=== PATIENT | female | born 1945 | race Caucasian/White ===

== ENCOUNTER 2016-11-06 06:30 | Day surgery (SDC) | payer MEDICARE, BC ==
[~2016-11-06] VITALS: Ht 170.2 cm; Wt 90.7 kg
--- NOTE | ~2016-11-06 | OP ---
PATIENT NAME: OPAL CHEN MEDICAL RECORD: [id number] :[birth year] LOCATION:[facility] ADMISSION DATE: SURGEON: TAMRA GREENE MD DATE OF OPERATION: 11/06/2016 REFERRED BY: Dr. Nikolas Espana. 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 SURGEON: Tamra Greene MD ANESTHESIA: General with LMA per DAMPER WORKER. OPERATION PERFORMED: Left upper extremity fistulogram with recanalization of the occluded subclavian vein with balloon angioplasty with a finding of a severe recoiling stenosis and subsequent stenting with a Langlois VBX 10 mm x 2.9 cm PTFE covered stent. PREOPERATIVE NOTE: Ms. Chen is a 70-year-old white female from [place], who has dialysis 3 days a week, Saturday, Saturday and Saturday in [place]. She dialyzes with a left brachiocephalic arteriovenous fistula and has had recurrent problems with first cephalic arch stenosis and more recently a recurrent stenosis in the left subclavian vein. She has had the cephalic arch stented and that has not been a problem now for some time. Dr. Espana thought that a balloon expandable stent possibly inserted from the femoral approach would be the best way of accurately stenting open the subclavian vein while maintaining patency and not interfering with the cephalic arch or its confluence with the subclavian. PROCEDURE: The patient was so uncomfortable that the operation could not be conducted under IV sedation and local. So, she was given a general anesthetic with an LMA and administered 2 by DAMPER WORKER. The left arm was prepped and draped as were both femoral areas in case of the need to go through a femoral approach. I accessed the fistula near the arterial anastomosis with micropuncture technique and placed first a 6-Bulgarian sheath and later an 8-Bulgarian sheath, which was required for the VBX stent. Contrast injection revealed no evidence of any stenoses or complications of the fistula. The cephalic arch was wide open looking very nice through the stent, especially the confluence of the cephalic and the axillary vein to form the subclavian vein, looked great. There was no impingement of all of the stent on the lumen, it seemed to be fairly flush there at the orifice of the cephalic arch. There was, however, a complete occlusion of the subclavian vein distal to the brachiocephalic. I fortunately was able to cross this very easily with a 0.035 angled Glidewire and subsequently passed an angled glide catheter and performed a superior vena cavogram and noted, then with pullback angiography, that there was no evidence of stenosis or occlusion of the brachiocephalic vein itself. The superior vena cava was normal. I then performed a wire exchange and inserted a long Stallworth wire parking it in the inferior vena cava and over that wire, I performed a balloon angioplasty with an 8 mm angioplasty balloon, which reached full effacement with standard pressure OPERATIVE REPORT [id number] OPAL CHEN inflation, but subsequent repeated digital angiography revealed a near total recoil with a 90% stenosis in that area. This area of stenosis had recurred several times as Dr. Espana had pointed out at the last treatment at [facility], so I went ahead and stented the area, but I was successful in stenting it very accurately from the arm approached through the fistula using a new Langlois product, the VBX balloon inflated stent. I chose a 10 mm diameter stent, 2.9 cm in length. This was positioned in the proximal subclavian vein, so as to preserve the orifice of the internal jugular vein which appeared to be small and probably stenotic from prior catheter access, but still patent. The stent was deployed with inflation of the balloon to 12 atmospheres. After which, the balloon was deflated and removed. Repeated contrast injection revealed a very satisfactory result, which did not require any further expansion of the stent. The stent would accommodate additional expansion up to 12 mm in diameter with foreshortening to 2.5 cm length; however, I really did not think that was necessary as it was almost a perfect size. The hardware was then removed and the introducer sheath removed and the puncture site closed with a [id number] 4-0 Prolene suture and that site subsequently dressed with an Avitene Ultrafoam sponge, Tegaderm and Cavilon skin prep. The patient was awakened and taken to the recovery room in stable condition. Blood loss during the procedure was 0 and no specimen was submitted. Sponges, instruments and needles, etc. were accounted for, certainly no drain was used. She will be discharged later from the outpatient department when meets criteria. She is to continue all of her same diet, medications and activities and continue her usual dialysis schedule. I have recommended that she be scheduled for a followup angiogram at [facility] in approximately 3 months. TRANSINT:[id number] Voice Confirmation ID: [id number] DOCUMENT ID: [id number] TAMRA GREENE MD CC: [id number] DICTATION DATE: 11/06/16 1432 PAINTER AIRBRUSH: 11/06/161918 [facility] 11/06/16 [facility] [address] [place] [address]
[2016-11-06] MEDS ORDERED: BAYER CHEWABLE81 MG PO (08:57)
[2016-11-06] MEDS ORDERED: NOVOLIN N100 U/ML SQ (08:58)
[2016-11-06] MEDS ORDERED: HUMALOG 30100 UNITS/ SC (08:59)
[2016-11-06] MEDS ORDERED: LASIX80 MG PO (09:00)
[2016-11-06] MEDS ORDERED: GABAPENTIN100 MG PO (09:01)
[2016-11-06] MEDS ORDERED: MIDODRINE HCL5 MG PO (09:01)
[2016-11-06] MEDS ORDERED: RENVELA800 MG PO (09:02)
[2016-11-06] MEDS ORDERED: PEPCID20 MG PO (09:02)
[2016-11-06] MEDS ORDERED: ZYRTEC10 MG PO (09:03)
[2016-11-06] MEDS ORDERED: REGLAN10 MG PO (09:04)
[2016-11-06 09:11] VITALS: Ht 170.2 cm; Wt 90.7 kg
[2016-11-06 10:00] LABS: ANION GAP 11.1 mmol/L (8-16); CALCIUM 9.7 mg/dL (8.5-10.1); CARBON DIOXIDE 31.2 mmol/L (21.0-32.0); CREATININE - SERUM 3.9 mg/dL (0.6-1.3); POTASSIUM - SERUM 4.3 mmol/L (3.5-5.1)
[2016-11-06 10:04] LABS: APTT 35.9 SECONDS (22.8-39.4); INR 0.92 (0.85-1.17); PROTIME 12.2 SECONDS (11.6-15.0)
[2016-11-06 10:07] LABS: BASOPHILS 0.8 % (0-2); EOSINOPHILS 1.8 % (0-7); HEMATOCRIT 38.2 % (36.0-48.0); HEMOGLOBIN 12.3 g/dL (12-16); LYMPHOCYTES 27.8 % (15-50); MCH 30.8 pg (26.0-34.0); MCHC 32.2 g/dL (31.0-37.0); MCV 95.7 fL (80.0-100.0); MEAN PLATELET VOLUME 11.3 fL (7.4-10.4); NEUTROPHILS 59.6 % (40-80); PLATELET COUNT 194 10x3/uL (130-400); RBC 3.99 10x6/uL (4.00-5.40); RDW 13.4 % (11.5-14.5)
--- NOTE | 2016-11-06 10:22 | NUR ---
1000 PT IS WEARING A HALTER MONITOR, STATES . DRAKE HAS BEEN CALLED TO START IV. 1020 PRE OP CXR DONE.
--- NOTE | 2016-11-06 13:25 | NUR ---
SHOES REMOVED FROM PT IN HOLDING AND TAKEN TO PTS ROOM PRIOR TO SURGERY
--- NOTE | 2016-11-06 14:51 | NUR ---
1441 SUAD DARDEN APN PAGED.
--- NOTE | 2016-11-06 15:16 | NUR ---
9966 SUAD DARDEN APN PAGED
== END 2016-11-06 15:30 | disposition home or self-care (01) ==
LOC: D.OPS 06:30
PROVIDERS: Surgery
DX: T82.858A Stenosis of other vascular prosthetic devices, implants and grafts, initial encounter (principal); N18.6 End stage renal disease; Z99.2 Dependence on renal dialysis; Z01.812 Encounter for preprocedural laboratory examination

== ENCOUNTER 2018-05-07 15:35 | Inpatient (IN) | payer MEDICARE, BC ==
[~2018-05-07] VITALS: Ht 170.2 cm; Wt 90.9 kg
[~2018-05-07 15:35] MED LIST: BAYER CHEWABLE81 MG PO; GABAPENTIN100 MG PO; HUMALOG 30100 UNITS/ SC; LASIX80 MG PO; MIDODRINE HCL5 MG PO; NOVOLIN N100 U/ML SQ; PEPCID20 MG PO; REGLAN10 MG PO; RENVELA800 MG PO; ZYRTEC10 MG PO
--- NOTE | 2018-05-07 16:15 | NUR ---
RECEIVED TO ROOM VIA WHEELCHAIR. WILL ADMIT.
[2018-05-07] MEDS ORDERED: REGLAN10 MG PO (16:25)
[2018-05-07] MEDS ORDERED: PEPCID AC20 MG PO (16:26)
[2018-05-07] MEDS ORDERED: RENVELA800 MG PO (16:26)
[2018-05-07] MEDS ORDERED: CORGARD20 MG PO (16:27)
[2018-05-07 16:28] VITALS: BP 169/70; BMI 31.4
--- NOTE | 2018-05-07 19:20 | NUR ---
RESUMING CARE, PT LAYING IN BED A&O BREATH SOUNDS EVEN, RESERVE RT AND LFT ARM NO IV ACCESS NO 02 LFT AVF CL IN REACH WILL CONT TO MONITOR
[2018-05-07 21:11] VITALS: BP 110/39
[2018-05-08 00:15] VITALS: BP 110/43
--- NOTE | 2018-05-08 01:13 | NUR ---
RESUMING CARE. PT LAYING IN BED A&O BREATH SOUNDS EVEN NO IV , LFT AVF RESERVED LFT AND RT ARM NO C/O PAIN OR DISTRESS WILL CONT TO MONITOR
[2018-05-08 05:52] VITALS: BP 114/43
--- NOTE | 2018-05-08 06:30 | NUR ---
PT HAD BEEN BRADYCARDIC RUNNING 37-40 , PER DR Elias HARDING CONSULT CARDOLOGY, PAGED HE ASKED IFHE NEEDED TO SEE HER AND WHAT ROOM , SO I ASSUME HE WILL SEE PT THIS MORNING
[2018-05-08 08:13] VITALS: BP 160/58
--- NOTE | 2018-05-08 09:15 | NUR ---
PT GAVE SELF SHOWER.
[2018-05-08 11:33] VITALS: BP 130/50
--- NOTE | 2018-05-08 12:59 | NUR ---
VASCULAR ACCESS NURSE TO COME PLACE AN IV IN PT'S RIGHT LOWER ARM.
--- NOTE | 2018-05-08 13:00 | NUR ---
RIGHT HAND 22G IV INSERTED BY DRAKE VASCULAR ACCESS NURSE.
[2018-05-08 13:06] VITALS: Ht 170.2 cm; Wt 90.9 kg
--- NOTE | 2018-05-08 15:06 | NUR ---
PT REFUSING VITAL SIGNS SAYING "IT HURTS TOO MUCH."
--- NOTE | 2018-05-08 16:38 | NUR ---
PT TAKEN TO DIALYSIS VIA BED.
[2018-05-08 20:00] VITALS: BP 121/40
--- NOTE | 2018-05-08 20:51 | NUR ---
PT BACK FROM DIALYSIS VIA HOSPITAL BED, VS WNL PT A&O BREATH SOUND EVEN IV IN RT HAND LFT AVF RESERVED LFT AND RT ARM, NO C/O OF PAIN OR DISTRESS AT HIS TIME CL IN REACH WILL CONT TO MONITOR
--- NOTE | 2018-05-09 07:30 | NUR ---
PT LYING IN BED RESTING, NO CONCERNS. C/O WANTING TO GO TO SURGERY SOONER RATHER THAN LATER. CL IN REACH. SRX2.
[2018-05-09 08:27] LABS: BASOPHILS 0.5 % (0-2); EOSINOPHILS 2.9 % (0-7); HEMATOCRIT 34.9 % (36.0-48.0); HEMOGLOBIN 11.2 g/dL (12-16); IMMATURE GRANULOCYTES 0.2 % (0-5); LYMPHOCYTES 23.6 % (15-50); MCH 30.4 pg (26.0-34.0); MCHC 32.1 g/dL (31.0-37.0); MCV 94.6 fL (80.0-100.0); MONOCYTES 9.2 % (2-11); NEUTROPHILS 63.6 % (40-80); PLATELET COUNT 162 10x3/uL (130-400); RBC 3.69 10x6/uL (4.00-5.40); WBC 6.3 10x3/uL (4.8-10.8)
[2018-05-09 08:36] LABS: INR 1.01 (0.85-1.17); PROTIME 12.8 SECONDS (11.6-15.0)
[2018-05-09 08:44] LABS: ALBUMIN 3.1 g/dL (3.4-5.0); ANION GAP 12.4 mmol/L (8-16); BILIRUBIN - TOTAL 0.4 mg/dL (0.2-1.3); CALCIUM 9.5 mg/dL (8.5-10.1); CARBON DIOXIDE 29.6 mmol/L (21.0-32.0); PHOSPHOROUS 5.8 mg/dL (2.5-4.9); PROTEIN - SERUM 6.7 g/dL (6.4-8.2)
[2018-05-09 09:02] VITALS: BP 149/52
--- NOTE | 2018-05-09 09:39 | NUR ---
BRIM SHAPER CAME TO COLLECT PT, THEN WAS CALLED BACK. UNSURE OF SURGICAL TIME AT THIS TIME. CL IN REACH. SRX2. CONCNENTS SIGNED. MORNING MEDICATIONS GIVEN.
[2018-05-09 13:48] VITALS: BP 156/51
--- NOTE | 2018-05-09 15:47 | NUR ---
PT TAKEN TO SURGERY
--- NOTE | 2018-05-09 17:31 | NUR ---
PT STILL IN OR
--- NOTE | 2018-05-09 18:17 | NUR ---
received pt from OR. AWAKE AND ORIENTED. NO CONCNERSN COMPLAINTS. NO QUESTIONS. SET UP SUPPER TRAY. CL IN REACH.
[2018-05-09 21:30] VITALS: BP 156/52
[2018-05-10 03:47] VITALS: BP 120/42
--- NOTE | 2018-05-10 05:48 | NUR ---
RESTING IN BED WITH EYES CLOSED. NO S/S OF DISTRESS OBSERVED, WILL CONT. POC.
[2018-05-10 06:17] LABS: BASOPHILS 0.3 % (0-2); EOSINOPHILS 0 % (0-7); HEMATOCRIT 35.2 % (36.0-48.0); HEMOGLOBIN 11.6 g/dL (12-16); IMMATURE GRANULOCYTES 0.1 % (0-5); LYMPHOCYTES 14.2 % (15-50); MCH 30.4 pg (26.0-34.0); MEAN PLATELET VOLUME 11.9 fL (7.4-10.4); MONOCYTES 6.8 % (2-11); NEUTROPHILS 78.6 % (40-80); PLATELET COUNT 164 10x3/uL (130-400); RBC 3.82 10x6/uL (4.00-5.40); RDW 12.8 % (11.5-14.5); WBC 7.3 10x3/uL (4.8-10.8)
[2018-05-10 06:23] LABS: MCV 92.1 fL (80.0-100.0)
[2018-05-10 06:40] LABS: ALBUMIN 2.9 g/dL (3.4-5.0); ANION GAP 14.9 mmol/L (8-16); BILIRUBIN - TOTAL 0.41 mg/dL (0.2-1.3); CALCIUM 9.9 mg/dL (8.5-10.1); CARBON DIOXIDE 26.7 mmol/L (21.0-32.0); MAGNESIUM - SERUM 2.2 mg/dL (1.8-2.4); PHOSPHOROUS 6.2 mg/dL (2.5-4.9); POTASSIUM - SERUM 4.6 mmol/L (3.5-5.1); PROTEIN - SERUM 6.4 g/dL (6.4-8.2)
[2018-05-10 06:42] LABS: CREATININE - SERUM 5.5 mg/dL (0.6-1.3)
--- NOTE | 2018-05-10 07:33 | NUR ---
PT ASLEEP, DID NOT WAKE I ENTERED. DID NOT FURTHER DISTURB AT THIS TIME. CL IN REACH. SRX2
--- NOTE | 2018-05-10 09:37 | NUR ---
RESTS IN BED WITH CALL LIGHT IN REACH. NO NEEDS VOICED. WILL MONITOR.
[2018-05-10 09:40] VITALS: BP 157/56
--- NOTE | 2018-05-10 13:04 | NUR ---
GOING TO DIAYLISIS NOW VIA WHEELCHAIR.
[2018-05-10 13:51] VITALS: BP 162/56
--- NOTE | 2018-05-10 14:12 | NUR ---
CALLED DR. DIGGS, WAS INSTRUCTED TO REVIEW HOME MEDREC FOR DISCHARGE. STATED "NO CHANGE IN MEDS, CONTINUE ALL HOME MEDICATIONS". THATS WHAT I DID.
--- NOTE | 2018-05-10 14:43 | MORECARE ---
CASE MANAGEMENT DISCHARGE SUMMARY PATIENT: OPAL CHEN UNIT: [id number] ADM DATE: 05/07/18 AGE: 72 : 47 SEX: F ROOM/BED: D.1017 AUTHOR: WILVER,DOC PHYSICIAN: REFERRING PHYSICIAN: NIKIA DIGGS MD DATE OF SERVICE: 05/10/18 Discharge Plan Patient Name: OPAL CHEN Facility: [facility]:[place] : 1945 Planned Disposition: Home Anticipated Discharge Date: 05/10/18 Discharge Date: Expected LOS: 3 Initial Reviewer: [email or web address] Initial Review Date: 05/07/2018 Generated: 05/10/18 3:43 pm Comments DCP- Discharge Planning Updated by [id number]: Anitha Mathew on 05/10/18 1:[address] Patient Name: OPAL CHEN Admission Status: Urgent Accout number: [id number] Admission Date: 05-07-2018 : 1945 Admission Diagnosis:BRADYCARDIA, UNSPECIFIED Attending: NIKIA DIGGS Current LOS: 3 Anticipated DC Date: 05-10-2018 Planned Disposition: Home Primary Insurance: MEDICARE A & B Discharge Planning Comments: CM met with patient to complete initial dc planning assessment. CM educated patient on the CM role and verbal consent given by patient to complete assessment. Patient lives at home alone and reports she is independent in her care. She transports herself to and from dialysis every --. Her son Ramon will transport her home today. CM called and informed Ramon that she was being dc and he stated he would be here today between 4:00 and 4:30. At discharge patient plans to return home alone and feels this is a safe discharge. CM discussed availability of home health, rehab services, and medical equipment. Patient denied known discharge needs at this time. CM will continue to follow and will assist as needed with dc plans/needs. DCPIA - Discharge Planning Initial Assessment Updated by [email or web address]: Anitha Mathew on 05/10/18 2:40 pm * Is the patient Alert and Oriented? Yes * How many steps to enter\exit or inside your home? ramp * PCP Dr. Hendricks in [place] Dr. Sandoval * Pharmacy [facility] in [place] * Preadmission Environment Home Alone * ADLs Independent * Equipment Cane Rolling Walker * List name and contact numbers for known caregivers / representatives who currently or will assist patient after discharge: Ramon Chen - maciel - [phone] * Verbal permission to speak to the caregivers and representatives has been obtained from the patient. Yes * Community resources currently utilized Other * Please name any agencies selected above. Dialysis at the [place] [facility]- Patient transports herself to and from dialysis. * Additional services required to return to the preadmission environment? No * Can the patient safely return to the preadmission environment? Yes * Has this patient been hospitalized within the prior 30 days at any hospital? No Coverage Notice Reviewer: [id number] - Anitha Mathew Notice Issued Date-Time: 05/10/2018 14:15 Notice Type: IM Discharge Notice Notice Delivered To: Patient Relationship to Patient: Battery Tester And Repairer Name: Delivery Method: HAND - Hand Delivered Radha Days: Prior Verbal Notification: Recipient Understood Notice: Yes Recipient Signature: Yes Med Rec Note Co-signed by Attending: Coverage Notice Comment: Patient Name: OPAL CHEN Page 11458 at 1443 All edits/amendments must be made on the electronic document DICTATION DATE: 05/10/181441 BUSINESS DEVELOPMENT COORDINATOR: JENSEN 05/10/181441 RPT#: [id number] DC DATE: STATUS: ADM IN [facility] [address] [place] [address] END OF REPORT
--- NOTE | 2018-05-10 14:49 | MORECARE ---
CASE MANAGEMENT DISCHARGE SUMMARY PATIENT: OPAL CHEN UNIT: [id number] ADM DATE: 05/07/18 AGE: 72 : [birth year] SEX: F ROOM/BED: D.7731 AUTHOR: WILVER,DOC PHYSICIAN: REFERRING PHYSICIAN: NIKIA DIGGS MD DATE OF SERVICE: 05/10/18 Discharge Plan Patient Name: OPAL CHEN Facility: [facility]:[place] : 1945 Planned Disposition: Home Anticipated Discharge Date: 05/10/18 Discharge Date: Expected LOS: 3 Initial Reviewer: [email or web address] Initial Review Date: 05/07/2018 Generated: 05/10/18 3:49 pm Comments DCP- Discharge Planning Updated by [email or web address]: Anitha Mathew on 05/10/18 1:[address] Patient Name: OPAL CHEN Admission Status: Urgent Accout number: [id number] Admission Date: 05-07-2018 : 1945 Admission Diagnosis:BRADYCARDIA, UNSPECIFIED Attending: NIKIA DIGGS Current LOS: 3 Anticipated DC Date: 05-10-2018 Planned Disposition: Home Primary Insurance: MEDICARE A & B Discharge Planning Comments: CM met with patient to complete initial dc planning assessment. CM educated patient on the CM role and verbal consent given by patient to complete assessment. Patient lives at home alone and reports she is independent in her care. She transports herself to and from dialysis every --. Her son Ramon will transport her home today. CM called and informed Ramon that she was being dc and he stated he would be here today between 4:00 and 4:30. At discharge patient plans to return home alone and feels this is a safe discharge. CM discussed availability of home health, rehab services, and medical equipment. Patient denied known discharge needs at this time. CM will continue to follow and will assist as needed with dc plans/needs. Offset Lithographic Press Operator: Anitha Mathew RN, CCM Appended by Anitha Mathew on 05/10/2018 14:43 PUDDLER PILE DRIVING: Important Medicare Message presented, explained, and signed by the patient. DCPIA - Discharge Planning Initial Assessment Updated by [id number]: Anitha Mathew on 05/10/18 2:40 pm * Is the patient Alert and Oriented? Yes * How many steps to enter\exit or inside your home? ramp * PCP Dr. Hendricks in [place] Dr. Nick * Pharmacy [facility] in [place] * Preadmission Environment Home Alone * ADLs Independent * Equipment Cane Rolling Walker * List name and contact numbers for known caregivers / representatives who currently or will assist patient after discharge: Ramon Chen - maciel - [phone] * Verbal permission to speak to the caregivers and representatives has been obtained from the patient. Yes * Community resources currently utilized Other * Please name any agencies selected above. Dialysis at the [place] [facility]- Patient transports herself to and from dialysis. * Additional services required to return to the preadmission environment? No * Can the patient safely return to the preadmission environment? Yes * Has this patient been hospitalized within the prior 30 days at any hospital? No Coverage Notice Reviewer: [id number] - Anitha Mathew Notice Issued Date-Time: 05/10/2018 14:15 Notice Type: IM Discharge Notice Notice Delivered To: Patient Relationship to Patient: Blunger Loader Name: Delivery Method: HAND - Hand Delivered Radha Days: Prior Verbal Notification: Recipient Understood Notice: Yes Recipient Signature: Yes Med Rec Note Co-signed by Attending: Coverage Notice Comment: Last DP export: 05/10/18 1:43 pm Patient Name: OPAL CHEN Page 23607 at 1449 All edits/amendments must be made on the electronic document DICTATION DATE: 05/10/181448 STRATEGY INTERN: JENSEN 05/10/18 1449 RPT#: [id number] DC DATE: STATUS: ADM IN [facility] [address] [place] [address] END OF REPORT
--- NOTE | 2018-05-10 17:04 | NUR ---
PT ESCORTED OUT VIA WHEELCHAIR TO [employer] [facility]. NO COMPLAINTS OTHER THAN WE TOOK A REALLY LONG TIME TO DO EVERYTHING.
--- NOTE | 2018-05-12 11:59 | MORECARE ---
CASE MANAGEMENT DISCHARGE SUMMARY PATIENT: OPAL CHEN UNIT: [id number] ADM DATE: 05/07/18 AGE: 72 : [birth year] SEX: F ROOM/BED: D.4784 AUTHOR: JULIUS PETTIT PHYSICIAN: REFERRING PHYSICIAN: NIKIA DIGGS MD DATE OF SERVICE: 05/12/18 Discharge Plan Patient Name: OPAL CHEN Facility: [facility]:[place] : 1945 Planned Disposition: Home Anticipated Discharge Date: 05/10/18 Discharge Date: 05/10/2018 Expected LOS: 3 Initial Reviewer: [email or web address] Initial Review Date: 05/07/2018 Generated: 05/12/18 12:59 pm Comments DCP- Discharge Planning Updated by [email or web address]: Anitha Mathew on 05/10/18 1:[address] Patient Name: OPAL CHEN Admission Status: Urgent Accout number: [id number] Admission Date: 05-07-2018 : 1945 Admission Diagnosis:BRADYCARDIA, UNSPECIFIED Attending: NIKIA DIGGS Current LOS: 3 Anticipated DC Date: 05-10-2018 Planned Disposition: Home Primary Insurance: MEDICARE A & B Discharge Planning Comments: CM met with patient to complete initial dc planning assessment. CM educated patient on the CM role and verbal consent given by patient to complete assessment. Patient lives at home alone and reports she is independent in her care. She transports herself to and from dialysis every --. Her son Ramon will transport her home today. CM called and informed Ramon that she was being dc and he stated he would be here today between 4:00 and 4:30. At discharge patient plans to return home alone and feels this is a safe discharge. CM discussed availability of home health, rehab services, and medical equipment. Patient denied known discharge needs at this time. CM will continue to follow and will assist as needed with dc plans/needs. Spinner Open End: Anitha Mathew RN, CCM Appended by Anitha Mathew on 05/10/2018 14:43 EVALUATION ASSISTANT: Important Medicare Message presented, explained, and signed by the patient. DCPIA - Discharge Planning Initial Assessment Updated by [email or web address]: Anitha Mathew on 05/10/18 2:40 pm * Is the patient Alert and Oriented? Yes * How many steps to enter\exit or inside your home? ramp * PCP Dr. Hendricks in [place] Dr. Nick * Pharmacy [facility] in [place] * Preadmission Environment Home Alone * ADLs Independent * Equipment Cane Rolling Walker * List name and contact numbers for known caregivers / representatives who currently or will assist patient after discharge: Ramon Chen - maciel - [phone] * Verbal permission to speak to the caregivers and representatives has been obtained from the patient. Yes * Community resources currently utilized Other * Please name any agencies selected above. Dialysis at the [facility]- Patient transports herself to and from dialysis. * Additional services required to return to the preadmission environment? No * Can the patient safely return to the preadmission environment? Yes * Has this patient been hospitalized within the prior 30 days at any hospital? No Coverage Notice Reviewer: [email or web address] Mike Mathew Notice Issued Date-Time: 05/10/2018 14:15 Notice Type: IM Discharge Notice Notice Delivered To: Patient Relationship to Patient: Systems Planner Name: Delivery Method: HAND - Hand Delivered Radha Days: Prior Verbal Notification: Recipient Understood Notice: Yes Recipient Signature: Yes Med Rec Note Co-signed by Attending: Coverage Notice Comment: Last DP export: 05/10/18 1:49 pm Patient Name: OPAL CHEN Page 26021 at 1159 All edits/amendments must be made on the electronic document DICTATION DATE: 05/12/18 1159 STERILE PROCESSING TECHNICIAN: JENSEN 05/12/18 1159 RPT#: [id number] DC DATE:05/10/18 STATUS: DIS IN [facility] [address] [place] [address] END OF REPORT
== END 2018-05-10 17:04 | disposition home or self-care (01) | DRG 252 ==
LOC: D.M2 15:35
PROVIDERS: Surgery; ADMIT Internal Medicine
PROC: B51W1ZZ Fluoroscopy of Dialysis Shunt/Fistula using Low Osmolar Contrast (ICD-10-PCS; 2018-05-09)
PROC: 057A3DZ Dilation of Left Brachial Vein with Intraluminal Device, Percutaneous Approach (ICD-10-PCS; principal; 2018-05-09 13:45)
DX: T82.868A Thrombosis due to vascular prosthetic devices, implants and grafts, initial encounter (principal); N18.6 End stage renal disease; I82.B19 Acute embolism and thrombosis of unspecified subclavian vein; I48.0 Paroxysmal atrial fibrillation; R00.1 Bradycardia, unspecified; E11.22 Type 2 diabetes mellitus with diabetic chronic kidney disease; Y83.8 Other surgical procedures as the cause of abnormal reaction of the patient, or of later complication, without mention of misadventure at the time of the procedure